=== PATIENT | female | born 1955 | race American Indian/Alaskan Native ===

== ENCOUNTER 2020-07-18 18:42 | Emergency (ER) | payer SELFPAY ==
[2020-07-18 19:17] VITALS: BP 187/94
--- NOTE | 2020-07-18 20:07 | Emergency Department Report ---
ED General Adult HPI - General Chief complaint: High BP Stated complaint: ELEVATED BP Time Seen by Provider: 07/18/20 19:48 Source: patient Mode of arrival: Ambulatory Limitations: No Limitations - History of Present Illness Initial comments: 64 yr old female with pmhx of HTN presents to ED c/o elevated BP. Patient states she routinely checks her BP daily. She states when she check her BP today it was higher than nl. She states her readings were 202/102, 197/110 and 209/102. She denies any symptoms. She states she is currently on triamterene 50mg daily. She states she has been compliant with the medication. She was recently switched to that medication about 1 week ago. She states she started checking her BP again this thursday, and her readings were high but not in the 200s. She states she called her PCP today about the high readings and it was recommended she come to ED. MD Complaint: Elevated blood pressure -: days(s) (today ) ED Review of Systems ROS: Stated complaint: ELEVATED BP Other details as noted in HPI Comment: All other systems reviewed and negative Constitutional: denies: chills, fever Respiratory: denies: cough, shortness of breath, wheezing Cardiovascular: denies: chest pain, palpitations Gastrointestinal: denies: abdominal pain, nausea, diarrhea Neurological: denies: headache, weakness, paresthesias ED Past Medical Hx - Past Medical History Previous Medical History?: Yes Hx Hypertension: Yes - Surgical History Past Surgical History?: Yes Hx Cholecystectomy: Yes Additional Surgical History: knee, and neck - Social History Smoking Status: Never Smoker Substance Use Type: None ED Physical Exam - General Limitations: No Limitations General appearance: alert, in no apparent distress - Head Head exam: Present: atraumatic, normocephalic, normal inspection - Eye Eye exam: Present: normal appearance, PERRL, EOMI Pupils: Present: normal accommodation - ENT ENT exam: Present: normal exam, normal orophraynx, mucous membranes moist - Neck Neck exam: Present: normal inspection, full ROM. Absent: tenderness - Respiratory Respiratory exam: Present: normal lung sounds bilaterally. Absent: respiratory distress - Cardiovascular Cardiovascular Exam: Present: regular rate, normal rhythm, normal heart sounds - GI/Abdominal GI/Abdominal exam: Present: soft. Absent: distended, tenderness - Neurological Exam Neurological exam: Present: alert, oriented X3, CN II-XII intact, normal gait - Psychiatric Psychiatric exam: Present: normal affect, normal mood - Skin Skin exam: Present: intact ED Course Vital Signs 07/18/20 19:16 Temperature 97.0 F L Pulse Rate 83 Respiratory 12 Rate Blood Pressure 187/94 O2 Sat by Pulse 99 Oximetry ED Medical Decision Making - Radiology Data Radiology results: report reviewed Patient presented to ED c/o elevated BP readings today. She has no symptoms. She was recently switched to triamterene 50mg about 1 week ago. Patient is well appearing, not toxic, not in any distress, and she is mentally stable and neurologically intact. Her BP now is 186/94, remaining VS normal. given patient is asymptomatic, no indication for any work up today. Recommend taking a dose of her triamterent tonight. Pt has a f/u appt with her PCP tomorrow via telemedicine which I recommend she keeps but she states she is wants to find another PCP so referral was given to another PCP. Recommend diet changes, and continued monitoring of her blood pressures daily. Pt expressed understanding of instructions and agreed with plan. She was stable at time of d/c. Critical care attestation.: If time is entered above; I have spent that time in minutes in the direct care of this critically ill patient, excluding procedure time. ED Disposition Clinical Impression: Hypertension Disposition: - TO HOME OR SELFCARE Is pt being admited?: No Does the pt Need Aspirin: No Condition: Stable Instructions: Hypertension, Adult, Slho-hu-Dicy, Hypertension (ED) Additional Instructions: You can take the triamterene 50 mg twice a day. Continue to monitor your blood pressure daily no more than 3 times per day. Keep your appointment with your primary care doctor tomorrow or you can follow-up with the primary care doctor listed on your discharge instructions. Return to the ER if you develop any symptoms related to your blood pressure such as chest pain, shortness of breath, focal weakness, difficulty speaking or seeing. Referrals: KENYATTA WALLACE MD [Staff Physician] - 3-5 Days Time of Disposition: 20:22
== END 2020-07-18 20:44 | disposition home or self-care (01) ==
LOC: ED 18:42
DX: I10 Essential (primary) hypertension (principal); Z79.899 Other long term (current) drug therapy; Z90.49 Acquired absence of other specified parts of digestive tract; Z98.890 Other specified postprocedural states
CPT/HCPCS: 99281

== ENCOUNTER 2020-12-03 12:52 | Outpatient (CLI) | payer OTHER ==
--- NOTE | 2020-12-05 22:52 | Pulmonary Function Test ---
DATE OF VISIT: 12/03/2020 PULMONARY FUNCTION TEST INITIAL SPIROMETRY: FVC 2.29 liters, which is 86% of the predicted. FEV1 is 2.19 liters, which is 97% of the predicted, FEV1/FVC ratio is 88. Flow volume loop, FEF 25-75% is 2.95 liters per second, which is 151% of the predicted. MVV is 64. LUNG VOLUMES: TLC 4.39 liters, which is 84% of the predicted and DLCO is 2.56 mL/min/mmHg, which is 80% of the predicted. IMPRESSION: Normal pulmonary function test. TID: [id number] RECEIPT: [id number] MARIBELL/SAM cc: Angel Quintero
== END 2020-12-03 12:53 | disposition home or self-care (01) ==
LOC: PF 12:52
PROVIDERS: ATTEND Internal Medicine
DX: R06.02 Shortness of breath (principal)
CPT/HCPCS: 94010; 94726; 94729

== ENCOUNTER 2021-09-05 14:46 | Outpatient (CLI) | payer OTHER ==
--- NOTE | 2021-09-05 16:19 | XRay Report ---
RIGHT SHOULDER 3 VIEW(S) INDICATION / CLINICAL INFORMATION: Rt Shoulder Pain COMPARISON: None available. FINDINGS: BONES / JOINT(S): No acute fracture or subluxation. Severe degeneration of the glenohumeral joint. SOFT TISSUES: No significant abnormality. ADDITIONAL FINDINGS: None. Signer Name: Zafar Kim DO Signed: 09/05/2021 4:15 PM Workstation Name: [email or web address]
--- NOTE | 2021-09-05 16:20 | XRay Report ---
XR spine lumbosacral 2-3V INDICATION / CLINICAL INFORMATION: BACK PAIN. COMPARISON: None available. FINDINGS: BONES/JOINT(S): No acute fracture or subluxation. Moderate degenerative disc disease at L5-S1. Grade 1 degenerative anterolisthesis at L3-4 and L4-5. SOFT TISSUES: No significant abnormality. ADDITIONAL FINDINGS: None. Signer Name: Alex Rabago MD Signed: 09/05/2021 4:16 PM Workstation Name: [email or web address]
--- NOTE | 2021-09-05 16:24 | XRay Report ---
XR spine thoracic 2V INDICATION / CLINICAL INFORMATION: BACK PAIN. COMPARISON: None available. FINDINGS: BONES/JOINT(S): No acute fracture or subluxation. Mild generalized spondylosis with tiny anterior and lateral osteophytes. SOFT TISSUES: No significant abnormality. ADDITIONAL FINDINGS: None. Signer Name: Alex Rabago MD Signed: 09/05/2021 4:19 PM Workstation Name: [email or web address]
== END 2021-09-05 14:47 | disposition home or self-care (01) ==
LOC: XRAY 14:46
PROVIDERS: ATTEND Internal Medicine
DX: M19.011 Primary osteoarthritis, right shoulder (principal); M47.814 Spondylosis without myelopathy or radiculopathy, thoracic region; M25.78 Osteophyte, vertebrae; M47.817 Spondylosis without myelopathy or radiculopathy, lumbosacral region
CPT/HCPCS: 72070; 72100

== ENCOUNTER 2022-01-10 09:39 | Outpatient (CLI) | payer OTHER ==
--- NOTE | 2022-01-10 11:16 | XRay Report ---
XR chest routine 2V INDICATION / CLINICAL INFORMATION: R05.1 ACUTE COUGH. COMPARISON: 12/30/2010 FINDINGS: SUPPORT DEVICES: None. HEART /PULMONARY VASCULATURE: No significant abnormality. LUNGS / PLEURA: No significant pulmonary or pleural abnormality. No pneumothorax. ADDITIONAL FINDINGS: Degenerative changes of the glenohumeral joints and thoracic spine. No acute oss eous findings. ACDF partially imaged. IMPRESSION: 1. No acute findings. Signer Name: Christiano Garza MD Signed: 01/10/2022 11:11 AM Workstation Name: [email or web address]
== END 2022-01-10 09:40 | disposition home or self-care (01) ==
LOC: XRAY 09:39
PROVIDERS: ATTEND Internal Medicine
DX: R05.1 Acute cough (principal); M19.019 Primary osteoarthritis, unspecified shoulder; M47.814 Spondylosis without myelopathy or radiculopathy, thoracic region
CPT/HCPCS: 71046

== ENCOUNTER 2022-02-05 14:04 | Outpatient (CLI) | payer OTHER ==
[2022-02-05 15:44] LABS: Basophils % (Auto) 0.9 % (0.0-1.8); Eosinophils # (Auto) 0.1 K/mm3 (0.0-0.4); Eosinophils % (Auto) 3.3 % (0.0-4.3); Hematocrit 37.4 % (30.3-42.9); Hemoglobin 12.4 gm/dl (10.1-14.3); Lymphocytes # (Auto) 1.9 K/mm3 (1.2-5.4); Lymphocytes % (Auto) 42.5 % (13.4-35.0); Mean Corpuscular HGB Conc 33 % (30-34); Mean Corpuscular Volume 87 fl (79-97); Monocytes # (Auto) 0.4 K/mm3 (0.0-0.8); Monocytes % (Auto) 8.6 % (0.0-7.3); Platelet Count 334 K/mm3 (140-440); Red Blood Count 4.29 M/mm3 (3.65-5.03); Red Cell Distribution Width 15.1 % (13.2-15.2)
[2022-02-05 15:50] LABS: Alanine Aminotransferase 11 units/L (7-56); Albumin 4.3 g/dL (3.9-5); BUN/Creatinine Ratio 14; Blood Urea Nitrogen 11 mg/dL (7-17); Calcium 9.6 mg/dL (8.4-10.2); Chol/HDL Ratio 3.46 %; HDL Cholesterol 64 mg/dL (40-59); Hemolysis Index 1; LDL Cholesterol,Direct 126 mg/dL (50-130)
== END 2022-02-05 14:05 | disposition home or self-care (01) ==
LOC: LABHHL 14:04
PROVIDERS: ATTEND Internal Medicine
DX: E78.5 Hyperlipidemia, unspecified (principal); R73.03 Prediabetes; E55.9 Vitamin D deficiency, unspecified; I10 Essential (primary) hypertension; R53.83 Other fatigue
CPT/HCPCS: 36415; 80053; 80061; 82306; 83036; 84443; 85025